=== PATIENT | female | born 1990 | race Caucasian/White ===

== ENCOUNTER 2022-08-08 13:40 | Emergency (ER) | payer BC, MEDICAID ==
[~2022-08-08] VITALS: Ht 160 cm; Wt 77.1 kg
[2022-08-08] MEDS ORDERED: ONDANSETRON HCL/PF 4 MG/2 ML VIAL IVP ONE (14:00)
[2022-08-08] MEDS ORDERED: IV NS 0.9% 1,000 ML BAG IV ONE (14:00)
[2022-08-08] MEDS ORDERED: ONDANSETRON HCL/PF 4 MG/2 ML VIAL ONE (14:12)
[2022-08-08 14:25] LABS: BASOPHILS % (AUTO) 0.3 % (0.0-2.0); EOSINOPHILS % (AUTO) 0.1 % (0.0-6.0); HEMATOCRIT 43 % (33-45); HEMOGLOBIN 14.7 g/dL (11.5-14.8); LYMPHOCYTES # (AUTO) 0.3 K/uL (0.8-4.8); LYMPHOCYTES % (AUTO) 2.4 % (20.0-44.0); MEAN CORPUSCULAR HGB CONC 34 g/dl (31.0-36.0); MEAN CORPUSCULAR VOLUME 85 fL (82-100); MONOCYTES # (AUTO) 0.3 K/uL (0.1-1.30); MONOCYTES % (AUTO) 2.8 % (2.0-12.0); NEUTROPHILS % (AUTO) 94.4 % (43.0-81.0); PLATELET COUNT (AUTO) 202 K/uL (150-450); RED BLOOD CELL COUNT(AUTO) 5.11 MIL/uL (4.0-5.2); WHITE BLOOD COUNT (AUTO) 10.5 K/uL (4.3-11.0)
--- NOTE | 2022-08-08 14:25 | NUR ---
pt came in due to diarrhea and nausea. she went to urgent care and was given Zofran IM at 1330. she was told to go to ER. pt put on bed and on monitor bdside. pt is aox4, AMBULATORY AND COOPERATIVE. SHE IS NOT IN ANY CR DISTRESS. MADE PT COMFORTABLE AND CONTINUED NURSING CARE.
[2022-08-08 14:27] LABS: BILIRUBIN,URINE 1+ (NEGATIVE); COLOR,URINE YELLOW (YELLOW); LEUKOCYTE ESTERASE ,URINE NEGATIVE (NEGATIVE); NITRITE, URINE NEGATIVE (NEGATIVE); PROTEIN,URINE 1+ mg/dl (NEGATIVE); UGLUCOSE NEGATIVE (NEGATIVE); UROBILINOGEN,URINE 0.2 EU/dL (0.2)
--- NOTE | 2022-08-08 14:28 | NUR ---
URINE AND BLD COLLECTED AND SENT TO LAB.
[2022-08-08 14:32] LABS: CALCIUM, SERUM 9.4 mg/dL (8.5-10.1); CREATININE 0.8 mg/dL (0.6-1.3); POTASSIUM 3.7 mmol/L (3.5-5.1)
[2022-08-08 14:38] LABS: ALBUMIN 4.2 g/dL (3.4-5.0); BILIRUBIN,DIRECT 0.2 mg/dL (0.0-0.2); BILIRUBIN,TOTAL 0.8 mg/dL (0.2-1.0); TOTAL PROTEIN, SERUM 7.7 g/dL (6.4-8.2)
[2022-08-08] MEDS ORDERED: CIPR500T5 PO (14:40)
[2022-08-08] MEDS ORDERED: FAMO20TA8 PO (14:40)
[2022-08-08] MEDS ORDERED: ONDA4TAB5 PO (14:40)
[2022-08-08 14:49] LABS: BACTERIA,URINE 2+ /HPF (None Seen); SQUAMOUS EPITHELIAL CELL,UR Moderate /HPF (None Seen); WBC,URINE 0-2 /HPF (0-3)
[2022-08-08] MEDS ORDERED: FAMOTIDINE/PF INJ 20 MG/2 ML VIAL IV ONE ×2 (14:49→15:00)
--- NOTE | 2022-08-08 15:38 | NUR ---
PT EDUCATED REGARDING DISCHARGE INSTRUCTIONS VERBALLY EDUCATED AND PT UNDERSTOOD AND RESTATED EDUCATION. IV LINE D/C'ED CATHETER INTACT GAIT STEADY ALL QUESTIONS ADRESSED.
[2022-08-08 15:42] VITALS: BP 127/80
== END 2022-08-08 15:43 | disposition home or self-care (01) ==
LOC: ER 14:15
DX: A08.4 Viral intestinal infection, unspecified (principal); Z79.899 Other long term (current) drug therapy
CPT/HCPCS: 99284; 96374; 96375; 85025; 80048; 87086; 83690; 80076; 84703; 81001; 36415; J3490; J2405